=== PATIENT | female | born 1995 | race Caucasian/White ===

== ENCOUNTER 2020-01-05 20:13 | Emergency (ER) | payer SELFPAY ==
[~2020-01-05] VITALS: Ht 167.6 cm; Wt 60.2 kg
[2020-01-05 20:40] VITALS: BP 124/90
--- NOTE | 2020-01-05 22:21 | NUR ---
PT TO ROOM FROM LOBBY
--- NOTE | 2020-01-05 22:31 | NUR ---
PT. AMBULATORY TO ROOM FROM [facility] AT THIS TIME. URINE SAMPLE REQUSTED FROM PT. PT. DECLINED TO PROVIDE URINE SAMPLE "UNTIL YOU GET ME SOME WATER!". EXPLAINED ED PROCESS TO PT. AND NEED FOR MD TO EVAL PRIOR TO RN GIVING WATER R/T ABD PAIN COMPLAINT; PT. STATES "IT'S NOT MY ABDOMINAL! IT'S MY OVARIES! I THINK I KNOW THE DIFFERENCE! I JUST NEED SOME WATER!" EXPLAINED WHY MD NEEDS TO EVAL FIRST. PT. THEN GRABBED WATER OUT OF HER BAG. REQUESTED PT. TO CHANGE INTO GOWN.
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
== END 2020-01-05 23:18 ==
LOC: ED 23:00
DX: R10.2 Pelvic and perineal pain (principal); Z72.9 Problem related to lifestyle, unspecified
CPT/HCPCS: 99283

== ENCOUNTER 2020-01-07 22:01 | Emergency (ER) | payer SELFPAY ==
[~2020-01-07] VITALS: Ht 170.2 cm; Wt 70.0 kg
[2020-01-07 22:15] VITALS: BP 118/76
== END 2020-01-07 22:44 | disposition left against medical advice (07) ==
LOC: ED 22:15
DX: F41.1 Generalized anxiety disorder (principal); R41.82 Altered mental status, unspecified; Z72.9 Problem related to lifestyle, unspecified
CPT/HCPCS: 99283

== ENCOUNTER 2020-01-08 03:08 | Emergency (ER) | payer SELFPAY ==
[~2020-01-08] VITALS: Ht 170.2 cm; Wt 60.4 kg
[2020-01-08 03:11] VITALS: BP 121/65
--- NOTE | 2020-01-08 03:22 | NUR ---
pt ambulates from triage to room with steady gait.
--- NOTE | 2020-01-08 04:13 | NUR ---
pt d/c with d/c summary and scripts. all questions answered. pt ambulates to registration desk with steady gait for d/c home. pt denies any other needs pertaining to this visit.
== END 2020-01-08 04:15 | disposition home or self-care (01) ==
LOC: ED 03:55
DX: Z00.00 Encounter for general adult medical examination without abnormal findings (principal); Z72.9 Problem related to lifestyle, unspecified
CPT/HCPCS: 99281

== ENCOUNTER 2020-01-08 14:50 | Emergency (ER) | payer SELFPAY ==
[~2020-01-08] VITALS: Ht 167.6 cm; Wt 60.4 kg
--- NOTE | 2020-01-08 15:06 | NUR ---
[email or web address]
[2020-01-08 15:16] VITALS: BP 118/66
--- NOTE | 2020-01-08 15:35 | NUR ---
Pt to room from lobby.
[2020-01-08 16:18] LABS: BASOPHILS # (AUTO) 0.03 x10^3/uL (0-0.1); BASOPHILS % (AUTO) 1 % (0-1); EOSINOPHILS # (AUTO) 0.08 x10^3/uL (0-0.4); EOSINOPHILS % (AUTO) 1 % (1-7); LYMPHOCYTES # (AUTO) 2.14 x10^3/uL (1-3.4); LYMPHOCYTES % (AUTO) 34 % (22-44); MD NO; MEAN CORPUSCULAR VOLUME 97.1 fL (80-100); MEAN PLATELET VOLUME 8.3 fL (7.4-10.4); MONOCYTES # (AUTO) 0.52 x10^3/uL (0.2-0.8); MONOCYTES % (AUTO) 8 % (2-9); NEUTROPHILS % (AUTO) 56 % (42-75); PLATELET COUNT 242 x10^3/uL (130-400); RED CELL DISTRIBUTION WIDTH 12.6 % (9.6-15.2)
--- NOTE | 2020-01-08 16:22 | NUR ---
UA COLLECTED AND SENT TO THE LAB. PT UPDATED ON POC AND CHANGING FOR US TO BE DONE. FAMILY AT BEDSIDE.
[2020-01-08 16:31] LABS: ALBUMIN 3.6 g/dL (3.4-5.0); ANION GAP 3 mmol/L (5-15); CALCIUM 8.2 mg/dL (8.5-10.1); CHLORIDE 110 mmol/L (98-107)
[2020-01-08 16:32] LABS: MICROSCOPIC INDICATED
--- NOTE | 2020-01-08 16:35 | NUR ---
PT IN US.
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
== END 2020-01-08 17:30 | disposition home or self-care (01) ==
LOC: ED 15:20
DX: E28.2 Polycystic ovarian syndrome (principal)
CPT/HCPCS: 36415; 76830; 80048; 81001; 82040; 84703; 85025; 87086; 99284

== ENCOUNTER 2020-01-08 23:44 | Emergency (ER) | payer SELFPAY ==
[~2020-01-08] VITALS: Ht 170.2 cm; Wt 58.0 kg
[2020-01-08 23:45] VITALS: BP 120/76
== END 2020-01-09 00:23 | disposition home or self-care (01) ==
LOC: ED 01-09 00:11
DX: R63.1 Polydipsia (principal); R19.7 Diarrhea, unspecified; F41.1 Generalized anxiety disorder; F17.210 Nicotine dependence, cigarettes, uncomplicated; Z72.9 Problem related to lifestyle, unspecified; Z59.0 Homelessness
CPT/HCPCS: 99283; 99406